=== PATIENT | male | born 1970 | race Caucasian/White ===

== ENCOUNTER 2017-06-03 16:19 | Emergency (ER) | payer BC, OTHER ==
[~2017-06-03] VITALS: Ht 182.9 cm; Wt 114.0 kg
[2017-06-03 16:33] VITALS: BP 138/83; PULSE 85; TEMP 37.4; O2SAT 97; Ht 182.9 cm; Wt 114.0 kg
[2017-06-03] MEDS ORDERED: ACETAMINOPHEN 325 MG TAB ONE (18:35)
[2017-06-03] MEDS ORDERED: PSEUDOEPHEDRINE HCL 30 MG TAB PO ONE (18:36)
[2017-06-03] MEDS ORDERED: ALBUTEROL HFA 8 GM INHALER INH ONE (18:37)
[2017-06-03] MEDS ORDERED: AZITHROMYCIN 250 MG TAB ONE (19:47)
--- NOTE | 2017-06-04 06:42 | DIAGNOSTIC IMAGING REPORT ---
CHEST ONE VIEW PORTABLE CLINICAL HISTORY: CHEST PAIN dyspnea COMPARISON STUDY: No previous studies for comparison. FINDINGS: The bones soft tissues and hemidiaphragms are normal. The cardiomediastinal silhouette is normal. The lungs are clear. The pulmonary vasculature is normal. IMPRESSION: Negative chest. The above report was generated using voice recognition software. It may contain grammatical, syntax or spelling errors. Electronically signed by: Joe Dowling M.D. 06/04/2017 6:41 AM Dictated Date/Time: 06/04/2017 6:41 AM
--- NOTE | 2017-06-04 12:40 | EMERGENCY ROOM VISIT NOTE ---
History First contact with patient: 18:02 Chief Complaint: FLU LIKE SX Stated Complaint: PNEMONIA History of Present Illness The patient is a 46 year old male who presents to the Emergency Room with complaints of cold and flulike symptoms for 5 days. The symptoms have been constant. The patient complains of cough, nasal congestion, ear pain, intermittent fever, chills. His cough is at times productive. Patient states that he love s also noticed a sore throat. He rates his symptoms as moderate in severity. He has not had any sick contacts. Nothing makes his symptoms worse or better. He felt that things were worsening over the last few days so he presents for evaluation. He has concerns for pneumonia. There has been no exertional chest pain. He has not had vomiting or diarrhea, no abdominal pain or urinary complaints. Review of Systems ROS: Please see HPI. At least 10 systems in total were reviewed and otherwise negative. Past Medical/Surgical History No prior history of pneumonia. No history of coronary or lung disease. Social History Smoking Status: Current Every Day Smoker Housing Status: lives with family Occupation Status: employed Current/Historical Medications No Active Prescriptions or Reported Meds Physical Exam Vital Signs Date Time Temp Pulse Resp B/P (MAP) Pulse Ox O2 Delivery O2 Flow Rate FiO2 06/03/17 16:33 37.4 85 22 138/83 97 Room Air Physical Exam GENERAL: Patient is in no acute distress. HEENT: No acute trauma, normocephalic atraumatic, mucous membranes moist, moderate nasal congestion, no scleral icterus. TMs clear bilaterally, there is some fluid behind both drums. Throat is mildly erythematous, no exudate or swelling. NECK: No stridor, no adenopathy, no meningismus, trachea is midline. LUNGS: Decreased breath sounds bilaterally, no wheezing or rhonchi, no respiratory distress. Occasional moist cough noted. HEART: Without murmurs gallops or rubs, regular rate and rhythm. ABDOMEN: Soft, nontender, bowel sounds positive, no hernias, no peritonitis. EXTREMITIES: No cyanosis or edema, full range of motion of all the joints without pain or difficulty, no signs for acute trauma. NEUROLOGIC: Oriented x 3, no acute motor or sensory deficits, no focal weakness. SKIN: No rash, no jaundice, no diaphoresis. Medical Decision & Procedures ER Provider Diagnostic Interpretation: Chest film does not show evidence for pneumonia or pneumothorax, there was no CHF. Medications Administered Patient received oral Sudafed 60 mg, 500 mg of oral Zithromax, albuterol via MDI , oral Tylenol 650 mg. Medical Decision The patient presents with cough and cold symptoms. Differential diagnosis includes pneumonia or pneumothorax, CHF, otitis media, pharyngitis, influenza or flulike illness. The patient was not toxic or febrile. He was not hypoxic. Chest film did not show pneumonia or pneumothorax, there was no CHF. I did order for an influenza swab however, as the Hospital was under an emergent downtime, the computer system had been malfunctioning, this order was somehow not processed. The patient had waited for around 3 hours and I did not feel that keeping him here even longer for this result would be of significant benefit-he has already been ill for 5 days and would not truly benefit from Tamiflu. The patient was given oral Sudafed, oral Tylenol, oral Zithromax and albuterol via MDI, he will be discharged on all the above. He appears to have a flulike illness and bronchitis. As he is a smoker, I do think antibiotics are indicated. If he is worsening, he can return for reassessment. He does feel better since being administered the medications mentioned above. Impression Primary Impression: Acute bronchitis Additional Impression: Flu-like symptoms Departure Information Dispostion Home / Self-Care Condition GOOD Prescriptions No Active Prescriptions or Reported Meds Referrals No Doctor, Assigned (PCP) Forms HOME CARE DOCUMENTATION FORM, IMPORTANT VISIT INFORMATION Patient Instructions My [facility] Problem Qualifiers
== END 2017-06-03 20:25 | disposition home or self-care (01) ==
LOC: C.EDB 16:22 → C.EDC 20:25
DX: J20.9 Acute bronchitis, unspecified (principal); J02.9 Acute pharyngitis, unspecified; H92.09 Otalgia, unspecified ear; R09.81 Nasal congestion; F17.200 Nicotine dependence, unspecified, uncomplicated